=== PATIENT | male | born 1980 | race Caucasian/White ===

== ENCOUNTER 2017-08-02 13:23 | Emergency (ER) | payer MEDICAID, OTHER ==
[~2017-08-02] VITALS: Ht 180.3 cm; Wt 77.3 kg
[2017-08-02] MEDS ORDERED: HYDR-3686 PO (13:53)
[2017-08-02] MEDS ORDERED: ONDA8TAB9 PO (13:53)
[2017-08-02] MEDS ORDERED: NICO-687 TOP (14:01)
[2017-08-02 14:02] VITALS: BP 125/65
== END 2017-08-02 14:05 | disposition home or self-care (01) ==
LOC: ER 13:24
DX: F11.10 Opioid abuse, uncomplicated (principal); Z79.899 Other long term (current) drug therapy
CPT/HCPCS: 99283